=== PATIENT | female | born 1990 | race Asian ===

== ENCOUNTER 2017-09-03 00:03 | Inpatient (IN) | payer SELFPAY ==
[~2017-09-03] VITALS: Ht 162.6 cm; Wt 60.8 kg
[2017-09-03 00:40] VITALS: BP 118/71
[2017-09-03] MEDS ORDERED: OXYTOCIN 20 UNITS in LACTATED RINGERS 1,000 ML IV SCH (01:00)
[2017-09-03] MEDS ORDERED: NALBUPHINE HYDROCHLORIDE 10 MG/ML VIAL IVP PRN (01:00)
[2017-09-03] MEDS ORDERED: MISOPROSTOL 25 MCG TAB VG SCH (01:00)
[2017-09-03] MEDS ORDERED: OXYTOCIN 10 UNITS/ML VIAL IM SCH (01:00)
[2017-09-03] MEDS ORDERED: PROMETHAZINE 25 MG/ML VIAL IVP PRN (01:00)
[2017-09-03] MEDS: LACTATED RINGERS 1,000 ML IV SCH ×2 (01:10→05:30)
[2017-09-03 01:17] LABS: BASOPHILS # (AUTO) 0.1 K/uL (0.00-0.22); BASOPHILS % (AUTO) 0.9 % (0.0-2.0); EOSINOPHILS # (AUTO) 0.1 K/uL (0-0.4); EOSINOPHILS % (AUTO) 1.2 % (0.0-4.0); HEMOGLOBIN 12.4 g/dL (12.0-16.0); LYMPHOCYTES # (AUTO) 1.8 K/uL (2.5-16.5); LYMPHOCYTES % (AUTO) 18.1 % (20.5-51.1); MEAN CORPUSCULAR HEMOGLOBIN 34 pg (27-31); MEAN CORPUSCULAR HGB CONC 34 g/dL (33-37); MEAN CORPUSCULAR VOLUME 98 fL (80-94); MONOCYTES # (AUTO) 0.7 K/uL (0.8-1.0); MONOCYTES % (AUTO) 6.6 % (1.7-9.3); NEUTROPHILS # (AUTO) 7.4 K/uL (1.8-7.7); NEUTROPHILS % (AUTO) 73.2 % (42.2-75.2); PLATELET COUNT (AUTO) 141 K/uL (140-450); RED BLOOD CELL COUNT(AUTO) 3.68 MIL/uL (4.20-5.40); RED CELL DISTRIBUTION WIDTH 12.2 % (11.6-13.7); WHITE BLOOD COUNT (AUTO) 10.1 K/uL (4.8-10.8)
[2017-09-03 01:22] LABS: APPEARANCE,URINE CLEAR (CLEAR); BILIRUBIN,URINE NEGATIVE (NEGATIVE); BLOOD, URINE 1+ (NEGATIVE); COLOR,URINE YELLOW (YELLOW); LEUKOCYTE ESTERASE ,URINE NEGATIVE (NEGATIVE); NITRITE, URINE NEGATIVE (NEGATIVE); UGLUCOSE NEGATIVE (NEGATIVE)
[2017-09-03] MEDS ORDERED: PREN-546 PO (01:30)
[2017-09-03] MEDS ORDERED: FERR-252 PO (01:30)
[2017-09-03] MEDS ORDERED: TRA200 PO (01:31)
[2017-09-03] MEDS ORDERED: MISOPROSTOL 25 MCG TAB ONE (02:11)
[2017-09-03 02:44] LABS: RBC,URINE 0-5 (RARE) /HPF (0-5); WBC,URINE 0-5 (RARE) /HPF (0-5)
[2017-09-03] MEDS ORDERED: OXYTOCIN 20 UNITS/LR PREMIX 1,000 ML IV ONE (06:17)
[2017-09-03] MEDS ORDERED: BUPIVACAINE 0.125%/NS PREMIX 250 ML ONE (08:17)
--- NOTE | 2017-09-03 08:44 | NUR ---
PATIENT HAS BEEN SCREENED AND CATEGORIZED LOW NUTRITION RISK. PATIENT WILL BE SEEN WITHIN 7 DAYS OF ADMISSION. 09/09/[address]
[2017-09-03] MEDS ORDERED: LABETALOL 100 MG TAB ONE (08:53)
[2017-09-03] MEDS ORDERED: LABETALOL 100 MG TAB PO SCH (09:00)
[2017-09-03] MEDS ORDERED: OXYTOCIN 10 UNITS/ML VIAL ONE (14:22)
[2017-09-03] MEDS ORDERED: HYDROcodone/APAP 5/325 MG 1 TAB TAB PO PRN (15:00)
[2017-09-03] MEDS ORDERED: oxyCODONE/APAP 5/325 MG 1 TAB TAB PO PRN (15:00)
[2017-09-03] MEDS ORDERED: IBUPROFEN 800 MG TAB PO PRN (15:00)
[2017-09-03] MEDS ORDERED: OXYTOCIN 10 UNITS/ML VIAL IM PRN (15:00)
[2017-09-03] MEDS ORDERED: MEASLES, MUMPS, AND RUBELLA 1 VIAL SQVAC PRN (15:00)
[2017-09-03] MEDS ORDERED: BENZOCAINE/MENTHOL 20%-0.5% 60 GM CAN TP PRN (15:00)
[2017-09-03] MEDS ORDERED: METHYLERGONOVINE 0.2 MG/ML AMP IM PRN (15:00)
[2017-09-03] MEDS ORDERED: TEMAZEPAM 15 MG CAP PO PRN (15:00)
[2017-09-03] MEDS ORDERED: DOCUSATE SOD/SENNA 50/8.6 MG 1 TAB PO SCH (21:00)
[2017-09-04 07:01] LABS: HEMATOCRIT 27.2 % (36-48); HEMOGLOBIN 9.5 g/dL (12.0-16.0)
[2017-09-04] MEDS: LABETALOL 100 MG TAB PO SCH ×2 (09:59→20:55)
[2017-09-05] MEDS: LABETALOL 100 MG TAB PO SCH (09:00)
[2017-09-05] MEDS ORDERED: INFLUENZA VIRUS VACCINE QUAD 0.5 ML SYR IMVAC SCH (10:30)
== END 2017-09-05 15:25 | disposition home or self-care (01) | DRG 775 ==
LOC: MLD 00:03 → MFCC 18:48
PROVIDERS: ADMIT Obstetrics & Gynecology; ATTEND Obstetrics & Gynecology
PROC: 10E0XZZ Delivery of Products of Conception, External Approach (ICD-10-PCS; principal; 2017-09-03)
PROC: 10907ZC Drainage of Amniotic Fluid, Therapeutic from Products of Conception, Via Natural or Artificial Opening (ICD-10-PCS; 2017-09-03)
PROC: 0W8NXZZ Division of Female Perineum, External Approach (ICD-10-PCS; 2017-09-03)
PROC: 3E033VJ Introduction of Other Hormone into Peripheral Vein, Percutaneous Approach (ICD-10-PCS; 2017-09-03)
PROC: 00HU33Z Insertion of Infusion Device into Spinal Canal, Percutaneous Approach (ICD-10-PCS; 2017-09-03)
PROC: 3E0R3BZ Introduction of Anesthetic Agent into Spinal Canal, Percutaneous Approach (ICD-10-PCS; 2017-09-03)
PROC: 3E0234Z Introduction of Serum, Toxoid and Vaccine into Muscle, Percutaneous Approach (ICD-10-PCS; 2017-09-05)
PROC: 3E0234Z Introduction of Serum, Toxoid and Vaccine into Muscle, Percutaneous Approach (ICD-10-PCS; 2017-09-05)
DX: O80 Encounter for full-term uncomplicated delivery (principal); Z23 Encounter for immunization; Z37.0 Single live birth; Z3A.39 39 weeks gestation of pregnancy
CPT/HCPCS: 36415; 51702; 59200; 59409; 81001; 85018; 85025; 86592; 86886; 86900; 86901; 90658; 90715; J2590; J3490; J7120